=== PATIENT | male | born 1965 | race African-American/Black ===

== ENCOUNTER 2017-09-08 19:09 | Emergency (ER) | payer OTHER ==
[2017-09-08 19:12] VITALS: BP 146/87; PULSE 63; RESP 46; TEMP 98.2; O2SAT 99
[2017-09-08] MEDS ORDERED: BACL10TA PO (19:51)
[2017-09-08] MEDS ORDERED: IBUP1TAB7 PO (19:51)
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
== END 2017-09-08 20:18 | disposition home or self-care (01) ==
LOC: NEPK 19:09
DX: S16.1XXA Strain of muscle, fascia and tendon at neck level, initial encounter (principal); S29.012A Strain of muscle and tendon of back wall of thorax, initial encounter; S76.012A Strain of muscle, fascia and tendon of left hip, initial encounter; S76.011A Strain of muscle, fascia and tendon of right hip, initial encounter; I10 Essential (primary) hypertension; V89.2XXA Person injured in unspecified motor-vehicle accident, traffic, initial encounter
CPT/HCPCS: 99283